=== PATIENT | male | born 1985 | race Caucasian/White ===

== ENCOUNTER 2020-02-15 14:18 | Inpatient (IN) | payer BC, SELFPAY ==
[~2020-02-15] VITALS: Ht 170.2 cm; Wt 71.4 kg
[2020-02-15 15:32] LABS: HEMATOCRIT 43.6 % (42.0-52.0); HEMOGLOBIN 14.7 g/dl (13.5-17.5); MEAN CORPUSCULAR HEMOGLOBIN 31.2 pg (27.0-33.0); MEAN CORPUSCULAR HGB CONC 33.7 g/dl (32.0-36.5); MEAN CORPUSCULAR VOLUME 92.6 fl (80.0-96.0); PLATELET COUNT, AUTOMATED 277 10^3/uL (150-450); RED BLOOD COUNT 4.71 10^6/uL (4.30-6.10); WHITE BLOOD COUNT 4.9 10^3/uL (4.0-10.0)
[2020-02-15 15:51] LABS: AMPHETAMINES LEVEL URINE NEGATIVE (NEGATIVE); BARBITURATES URINE NEGATIVE (NEGATIVE); BENZODIAZEPINES URINE NEGATIVE (NEGATIVE); CANNABINOIDS URINE NEGATIVE (NEGATIVE); COCAINE METABOLITE URINE NEGATIVE (NEGATIVE); METHADONE URINE NEGATIVE (NEGATIVE); OPIATES URINE NEGATIVE (NEGATIVE); PHENCYCLIDINE URINE NEGATIVE (NEGATIVE)
[2020-02-15 16:01] LABS: ACETAMINOPHEN LEVEL < 2.0 UG/ML (10.0-30.0); ALBUMIN 4.7 GM/DL (3.2-5.2); ALT/SGPT 30 U/L (12-78); BILIRUBIN,DIRECT 0.2 MG/DL (0.0-0.2); BILIRUBIN,TOTAL 0.6 MG/DL (0.2-1.0); BLOOD UREA NITROGEN 5 MG/DL (7-18); CALCIUM LEVEL 8.9 MG/DL (8.5-10.1); CARBON DIOXIDE LEVEL 27 MEQ/L (21-32); CHLORIDE LEVEL 106 MEQ/L (98-107); CREATININE FOR GFR 0.88 MG/DL (0.70-1.30); ETHYL ALCOHOL (ETHANOL) 0.226 % (0.000-0.010); GLOMERULAR FILTRATION RATE > 60.0 (>60); GLUCOSE, FASTING 104 MG/DL (70-100); SALICYLATE LEVEL < 1.7 MG/DL (5.0-30.0); SODIUM LEVEL 141 MEQ/L (136-145); THYROID STIMULATING HORMONE 0.612 uIU/ML (0.358-3.740); TOTAL PROTEIN 7.6 GM/DL (6.4-8.2)
[2020-02-15] MEDS ORDERED: LORazepam 2 MG TAB PO PRN (16:45)
[2020-02-15] MEDS: THIAMINE 100 MG TAB PO SCH (17:11)
[2020-02-15] MEDS: MULTIVITAMINS/MINERALS THERAP 1 TAB PO SCH (17:11)
[2020-02-15] MEDS: FOLIC ACID 1 MG TAB PO SCH (17:11)
[2020-02-15] MEDS ORDERED: NICOTINE 21MG/24HR 1 EA TRANSDERMAL TD ONE (18:15)
[2020-02-16] MEDS: FOLIC ACID 1 MG TAB PO SCH (10:39)
[2020-02-16] MEDS: MULTIVITAMINS/MINERALS THERAP 1 TAB PO SCH (10:39)
[2020-02-16] MEDS: THIAMINE 100 MG TAB PO SCH ×2 (10:39→20:52)
[2020-02-16] MEDS ORDERED: THIAMINE 100 MG TAB PO SCH (21:00)
[2020-02-16] MEDS ORDERED: IBUPROFEN 400 MG TAB PO PRN (23:00)
[2020-02-16] MEDS ORDERED: OLANZapine ORAL DISINTEGRATING TAB 5MG PO PRN (23:00)
[2020-02-16] MEDS ORDERED: LORazepam 2 MG TAB PO PRN (23:00)
[2020-02-16] MEDS ORDERED: traZODone 50 MG TAB PO PRN (23:00)
[2020-02-16] MEDS ORDERED: MOM 30ML SUSPENSION UDC PO PRN (23:00)
[2020-02-16] MEDS ORDERED: MAALOX 30 ML SUSP *UDC PO PRN (23:00)
[2020-02-17 00:10] VITALS: BP 147/95
[2020-02-17 06:52] VITALS: BP 148/79
[2020-02-17] MEDS: MULTIVITAMINS/MINERALS THERAP 1 TAB PO SCH ×2 (08:45→09:00)
[2020-02-17] MEDS: FOLIC ACID 1 MG TAB PO SCH ×2 (08:45→09:00)
[2020-02-17] MEDS: THIAMINE 100 MG TAB PO SCH ×3 (08:45→20:50)
[2020-02-17] MEDS: NICOTINE 21MG/24HR 1 EA TRANSDERMAL TD SCH (09:20)
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
[2020-02-17 17:31] VITALS: BP 132/77
--- NOTE | 2020-02-17 18:47 | ECGEPIP ---
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
--- NOTE | 2020-02-17 21:54 | HPEPDOC ---
[facility] Medical History & Physical Date of Admission Feb 16, 2020 Date of Service: Feb 17, 2020 History and Physical CHIEF COMPLAINT: Suicidal Ideation HISTORY OF PRESENT ILLNESS: Mr. Jj is a 34 year old male who works in the [employer] who was found with a blood alcohol level of 0.226 and suicidal i deations. He tells me that he does have stress in his life that lead him to suicidal ideations. Otherwise, denies any past medical history or past surgical history. He does drink alcohol frequently as he works in a [employer]. He has never had problems with withdrawal in the past. He tells me the longest he's been without alcohol was a week. Otherwise denies fever/chills, chest pain, dyspnea, abdominal pain, or dysuria. PAST MEDICAL HISTORY: 1. Denies past medical history PAST SURGICAL HISTORY: 1. Denies past surgeries SOCIAL HISTORY: Tobacco use:Former smoker. Now vapes instead. Started vaping 6 months ago ETOH: Frequent Illicit drug use: Marijuana a couple times a month FAMILY HISTORY: Father: HBP and migraines Mother: unknown ALLERGIES: Please see below. REVIEW OF SYSTEMS: CONSTITUTIONAL: Denies any fever or chills. Denies lightheadedness or dizziness. ENT: Denies rhinorrhea. Denies sore throat. Denies dysphagia. RESPIRATORY: Denies shortness of breath. Denies cough. CARDIOVASCULAR: Denies chest pain. Denies palpitations. GASTROINTESTINAL: Denies abdominal pain. Denies diarrhea. Denies constipation GENITOURINARY: Denies dysuria. CUTANEOUS: Denies rashes. MUSCULOSKELETAL: Denies muscle weakness. NEUROLOGICAL: Denies neuropathy. Denies paresthesias. PSYCHOLOGICAL: Reports stress HOME MEDICATIONS: Please see below. PHYSICAL EXAMINATION: VITAL SIGNS: Temperature 98.7, pulse 71, respiratory rate 16, blood pressure 132/77, pulse oximetry 99 % on room air. GENERAL: Comfortable, in no apparent distress. HEENT: Head normocephalic/atraumatic, EOMI, sclera clear. NECK: Supple, no JVD. RESPIRATORY: Lungs clear to auscultation bilaterally, no rales, wheeze or rhonchi. CARDIOVASCULAR: Regular rate and rhythm. ABDOMEN: Soft, nontender, no guarding or rebound tenderness. Normal bowel sounds. MUSCLE SKELETAL: Muscle strength 5/5 in all extremities. NEUROLOGICAL: CN 312 grossly intact, no focal deficits noted. PSYCHOLOGICAL: Normal mood and affect LABORATORY DATA: See below. ASSESSMENT AND PLAN: 1. Suicide ideation Being managed in the inpatient mental health unit 2. Wellness Patient should follow with a PCP for general wellness Thank you for consulting us. We will sign off at this time. Please feel free to reconsult us if there is any further questions or concerns. Vital Signs Vital Signs Date Time Temp Pulse Resp B/P (MAP) Pulse Ox O2 Delivery O2 Flow Rate FiO2 02/17/20 17:31 98.7 71 16 132/77 (95) 99 Room Air Home Medications No Active Prescriptions or Reported Meds Allergies Coded Allergies: Penicillins (Unverified Allergy, Unknown, 02/15/20) A-FIB/CHADSVASC A-FIB History Current/History of A-Fib/PAF?: No CATRACHO CHIN DO Feb 17, 2020 21:54
[2020-02-17 23:50] VITALS: BP 132/77
[2020-02-18 06:29] VITALS: BP 112/88
[2020-02-18 06:53] VITALS: BP 112/88
[2020-02-18] MEDS: THIAMINE 100 MG TAB PO SCH ×2 (08:34→20:05)
[2020-02-18] MEDS: NICOTINE 21MG/24HR 1 EA TRANSDERMAL TD SCH (08:34)
[2020-02-18] MEDS: MULTIVITAMINS/MINERALS THERAP 1 TAB PO SCH (08:34)
[2020-02-18] MEDS: FOLIC ACID 1 MG TAB PO SCH (08:34)
[2020-02-18] MEDS ORDERED: SERTRALINE HCL 25 MG TABLET PO ONE (10:00)
[2020-02-18] MEDS: busPIRone 5 MG TAB PO SCH ×2 (10:29→20:06)
--- NOTE | 2020-02-18 11:53 | MHIPNPDOC ---
[facility] Progress Note Progress Note DATE OF SERVICE: 02/18/20 Patient is a 34 year old Single, Employed, Domiciled, Male reporting severe depression and anxiety with suicidal ideation to shoot himself or cause an MVC. History of Present Illness HISTORY OF THE PRESENT ILLNESS: Patient is a 34 year old Single, Employed, Angi ciled, Male reporting severe depression and anxiety with suicidal ideation to shoot himself or cause an MVC. He is reporting a recent breakup and states "that was the straw the broke the camel's back. Reports that the last 3- 4 weeks he has been "feeling like it would be better if he wasn't alive." He states that his friends have intervened and made him promise to get help to seek therapy and medication. He said that one night earlier in the month he had a bad night, called a suicide hotline and they directed him to an agency in [place] but he needs health insurance for therapy. States that he currently has a job but does not make enough money to afford health insurance. His depression became severe enough that his boss and friend brought him to the ED. He states that he has been having passive suicidal planning, to either get access to a gun to shoot himself or drive his truck into the acuna or cause an MVC. He states that his home is so far away from other people that a gun shot would not alert anyone to his home. He is however currently living with his parents. His home is off the grid and because he is unable to keep up with heating and such he moved in with his parents before last winter. Then COVID hit and he is still living in an apartment off his parents house. He feels that he has had depression since he was a teen. He reports 5 breakups but more recently because of his most recent breakup he lost the ability to continue his homestead. The night that his girlfriend left, all of his chickens were killed because he did not get home soon enough to lock them in the coop and then he couldn't keep up with the garden, his steel finisher broke and last winter the pipes froze. He sees the inability to continue his homesteading as a big failure in his life. VITAL SIGNS: See below. NEW TEST RESULTS: CURRENT MEDICATIONS: See below. MENTAL STATUS EXAMINATION: Patient is a 34 year old Single, Employed, Domiciled, Male, who is reporting severe depression, anxiety and suicidal ideation. Recently had a breakup but reports a long history of catastrophic events with his home, ho mesteading lifestyle and loss of friends due to excessive alcohol use. Patient works at a [employer] and much of his excessiveness relates to this position. Speech: Is fluid, conversant, normal rate, tone and volume Language skills are intact Thought processes including: linear and goal oriented Thought content: reports depression and anxiety. Abstract reasoning, and computation: fair Description of associations: denies, none observed Description of abnormal or psychotic thoughts: denies, none observed. Judgment: fair Insight: fair Orientation: alert and oriented to person, place, time and situation Recent and remote memory: intact Attention span and concentration: good Language: expansive Fund of knowledge: below average Mood: remain severely depressed Affect: flat/tearful and at times despondent DIAGNOSES: Major Depressive Disorder, Single Episode, Moderate Anxiety Disorder Alcohol Use Disorder and Dependence Tobacco Use Disorder Cannabis Use Disorder ASSESSMENT: Patient remains very depressed, reports no suicidal ideation but admits to anxiety. He reported that his earlier recollection of depression was when he was 15-16 when he felt that he wasn't as close to his parents as he was to his friends' parents. From there, looking back he states that he was rebellious and moved out on his own and did not speak to his parents until he was in his 20's. Most recently he states that when he was homesteading and living off the grid. He was doing well, but a series of misfortunate events including a breakup made it very difficult for him and this is when he became more depressed and anxious. States that he lost his chickens, his steel finisher , his pipes froze and girlfriend of 5 years broke up with him. Meanwhile he has been drinking and developing a tolerance because part of his job is drinking the products at the [employer]. Throughout the interview, the patient was very tearful, stating that he feels that he failed himself when he lost the homestead for which he is still paying the mortgage on. During today's interview, I encouraged patient to journal (he was given a notebook to do this) with several assignments to write to himself. 1) write to his 15 year old self. 2) write to his 30 year old self 3) write to himself now with the past 6 months and the many stressors going on. 4) write all the negative thoughts that he has been th inking 5) positive statements to counter the negative thoughts. Patient also talked about his future plans and wished he had another way to visually plan things out (journal given for this) Motivational Interviewing for reduction of alcohol intake. Patient is considering a new career feeling that he cannot continue to work at [employer] believing that this is also the crux of his depression. MANAGEMENT PLAN: Patient started Zoloft, has been treatment naive, also Buspar for anxiety. Zoloft will be increased in a few days. TIME SPENT: 49 minutes. 10:00-10:49 Vital Signs Vital Signs Date Time Temp Pulse Resp B/P (MAP) Pulse Ox O2 Delivery O2 Flow Rate FiO2 02/18/20 06:53 98.3 82 16 112/88 (96) 98 Room Air Current Medications Current Medications Medications (Trade) Dose Ordered Sig/Nikunj Route PRN Reason Start Time Stop Time Status Last Admin Dose Admin Al Hydrox/Mg Hydrox/Simethicone (Mylanta) 30 ml Q4HP PRN PO HEARTBURN/INDIGESTION 02/16/20 23:00 Buspirone HCl (Buspar) 5 mg BID PO 02/18/20 09:00 02/18/20 10:29 Folic Acid (Folic Acid) 1 mg DAILY PO 02/15/20 16:45 02/17/20 09:52 DC 02/17/20 08:45 Folic Acid (Folic Acid) 1 mg DAILY PO 02/17/20 09:00 02/18/20 08:34 Home Med (Med Rec Complete!) ASDIRECTED XX 02/15/20 18:00 02/15/20 18:07 DC Ibuprofen (Advil) 400 mg Q6HP PRN PO PAIN 02/16/20 23:00 Lorazepam (Ativan) 2 mg ASDIRECTED PRN PO SEE PROTOCOL 02/15/20 16:45 02/17/20 09:53 DC Lorazepam (Ativan) 2 mg ASDIRECTED PRN PO SEE PROTOCOL 02/16/20 23:00 Magnesium Hydroxide (Milk Of Magnesia) 30 ml DAILYPRN PRN PO CONSTIPATION 02/16/20 23:00 Multivitamins (Theragram-M) 1 tab DAILY PO 02/15/20 16:45 02/17/20 09:53 DC 02/17/20 08:45 Multivitamins (Theragram-M) 1 tab DAILY PO 02/17/20 09:00 02/18/20 08:34 Nicotine (Nicoderm Cq 21mg) 1 patch DAILY TD 02/17/20 09:00 02/18/20 08:34 Olanzapine (ZyPREXA ZYDIS) 5 mg Q4HP PRN PO AGITATION 02/16/20 23:00 Sertraline HCl (Zoloft) 25 mg DAILY PO 02/19/20 09:00 Thiamine HCl (Thiamine HCl) 100 mg BID PO 02/15/20 16:45 02/17/20 09:53 DC 02/17/20 08:45 Thiamine HCl (Thiamine HCl) 100 mg BID PO 02/16/20 21:00 02/16/20 23:10 DC Thiamine HCl (Thiamine HCl) 100 mg BID PO 02/17/20 09:00 02/19/20 21:01 02/18/20 08:34 Trazodone HCl (Desyrel) 50 mg QHSP PRN PO INSOMNIA 02/16/20 23:00 Allergies Coded Allergies: Penicillins (Unverified Allergy, Unknown, 02/15/20) CHERYL CONNOLLY NP Feb 18, 2020 11:49
[2020-02-18 14:00] VITALS: BP 121/69
[2020-02-18 16:13] VITALS: BP 140/92
[2020-02-18 22:18] VITALS: BP 144/92
[2020-02-19 06:11] VITALS: BP 146/88
[2020-02-19 06:22] VITALS: BP 146/88
[2020-02-19] MEDS: MULTIVITAMINS/MINERALS THERAP 1 TAB PO SCH (08:26)
[2020-02-19] MEDS: busPIRone 5 MG TAB PO SCH ×2 (08:26→20:51)
[2020-02-19] MEDS: FOLIC ACID 1 MG TAB PO SCH (08:26)
[2020-02-19] MEDS: NICOTINE 21MG/24HR 1 EA TRANSDERMAL TD SCH (08:26)
[2020-02-19] MEDS: THIAMINE 100 MG TAB PO SCH ×2 (08:27→20:51)
[2020-02-19] MEDS ORDERED: SERTRALINE HCL 25 MG TABLET PO SCH (09:00)
[2020-02-19 09:39] VITALS: BP 168/96
[2020-02-19 16:31] VITALS: BP 143/88
[2020-02-19 16:39] VITALS: BP 143/88
--- NOTE | 2020-02-19 17:06 | MHIPNPDOC ---
[facility] Progress Note Progress Note DATE OF SERVICE: 02/19/20 Patient is a 34 year old Single, Employed, Domiciled, Male reporting severe depression and anxiety with suicidal ideation to shoot himself or cause an MVC. History of Present Illness HISTORY OF THE PRESENT ILLNESS: Patient is a 34 year old Single, Employed, Dom iciled, Male reporting severe depression and anxiety with suicidal ideation to shoot himself or cause an MVC. He is reporting a recent breakup and states "that was the straw the broke the camel's back. Reports that the last 3- 4 weeks he has been "feeling like it would be better if he wasn't alive." He states that his friends have intervened and made him promise to get help to seek therapy and medication. He said that one night earlier in the month he had a bad night, called a suicide hotline and they directed him to an agency in [place] but he needs health insurance for therapy. States that he currently has a job but does not make enough money to afford health insurance. His depression became severe enough that his boss and friend brought him to the ED. He states that he has been having passive suicidal planning, to either get access to a gun to shoot himself or drive his truck into the acuna or cause an MVC. He states that his home is so far away from other people that a gun shot would not alert anyone to his home. He is however currently living with his parents. His home is off the grid and because he is unable to keep up with heating and such he moved in with his parents before last winter. Then COVID hit and he is still living in an apartment off his parents house. He feels that he has had depression since he was a teen. He reports 5 breakups but more recently because of his most recent breakup he lost the ability to continue his homestead. The night that his girlfriend left, all of his chickens were killed because he did not get home soon enough to lock them in the coop and then he couldn't keep up with the garden, his cd technician broke and last winter the pipes froze. He sees the inability to continue his homesteading as a big failure in his life. VITAL SIGNS: See below. NEW TEST RESULTS: See lab results CURRENT MEDICATIONS: See below. MENTAL STATUS EXAMINATION: patient is 34 year old male with h/o suicidal thoughts, anxiety and depression who ws admitted because he had thoughts about shooting himself. . Speech: normal in r/t/v, spontaneous and fluid Language skills are intact Thought processes including: linear, coherent and goal directed Thought content: Anxious and depressive thoughts, denies SI/HI, thought delusions Abstract reasoning, and computation: fair Description of associations: intact Description of abnormal or psychotic thoughts: denies thought delusions, denies TAV hallucinations, not responding to internal stimuli Judgment: fair Insight: fair Orientation: alert and oriented to person, place, time and situation Recent and remote memory: intact Attention span and concentration: good Language: good language, no abnormalities observed Fund of knowledge: below average Mood: depressed/ sad Affect: congruent with mood but he ties to minimize it DIAGNOSES: Major Depressive Disorder, Single Episode, Moderate Anxiety Disorder Alcohol Use Disorder and Dependence Tobacco Use Disorder Cannabis Use Disorder ASSESSMENT: The patient is still depressed but he is trying to keep his mind busy by attending groups, he says he finds them helpful and he feels safe here. He says he feels improved but I feel he is trying to minimize his depression. Will increase Sertraline to 50 mgs Po daily. MANAGEMENT PLAN: He will take 50 mgs of Sertraline tomorrow morning TIME SPENT: 20 minutes Vital Signs Vital Signs Date Time Temp Pulse Resp B/P (MAP) Pulse Ox O2 Delivery O2 Flow Rate FiO2 02/19/20 16:39 69 143/88 02/19/20 16:31 98.3 16 02/19/20 06:11 Room Air 02/18/20 06:53 98 Current Medications Current Medications Medications (Trade) Dose Ordered Sig/Nikunj Route PRN Reason Start Time Stop Time Status Last Admin Dose Admin Al Hydrox/Mg Hydrox/Simethicone (Mylanta) 30 ml Q4HP PRN PO HEARTBURN/INDIGESTION 02/16/20 23:00 Buspirone HCl (Buspar) 5 mg BID PO 02/18/20 09:00 02/19/20 08:26 Folic Acid (Folic Acid) 1 mg DAILY PO 02/15/20 16:45 02/17/20 09:52 DC 02/17/20 08:45 Folic Acid (Folic Acid) 1 mg DAILY PO 02/17/20 09:00 02/19/20 08:26 Home Med (Med Rec Complete!) ASDIRECTED XX 02/15/20 18:00 02/15/20 18:07 DC Ibuprofen (Advil) 400 mg Q6HP PRN PO PAIN 02/16/20 23:00 Lorazepam (Ativan) 2 mg ASDIRECTED PRN PO SEE PROTOCOL 02/15/20 16:45 02/17/20 09:53 DC Lorazepam (Ativan) 2 mg ASDIRECTED PRN PO SEE PROTOCOL 02/16/20 23:00 Magnesium Hydroxide (Milk Of Magnesia) 30 ml DAILYPRN PRN PO CONSTIPATION 02/16/20 23:00 Multivitamins (Theragram-M) 1 tab DAILY PO 02/15/20 16:45 02/17/20 09:53 DC 02/17/20 08:45 Multivitamins (Theragram-M) 1 tab DAILY PO 02/17/20 09:00 02/19/20 08:26 Nicotine (Nicoderm Cq 21mg) 1 patch DAILY TD 02/17/20 09:00 02/19/20 08:26 Olanzapine (ZyPREXA ZYDIS) 5 mg Q4HP PRN PO AGITATION 02/16/20 23:00 Sertraline HCl (Zoloft) 25 mg DAILY PO 02/19/20 09:00 02/19/20 08:27 Thiamine HCl (Thiamine HCl) 100 mg BID PO 02/15/20 16:45 02/17/20 09:53 DC 02/17/20 08:45 Thiamine HCl (Thiamine HCl) 100 mg BID PO 02/16/20 21:00 02/16/20 23:10 DC Thiamine HCl (Thiamine HCl) 100 mg BID PO 02/17/20 09:00 02/19/20 21:01 02/19/20 08:27 Trazodone HCl (Desyrel) 50 mg QHSP PRN PO INSOMNIA 02/16/20 23:00 Allergies Coded Allergies: Penicillins (Unverified Allergy, Unknown, 02/15/20) YAJAIRA PONCE MD Feb 19, 2020 17:06
[2020-02-20 06:16] VITALS: BP 141/85
[2020-02-20] MEDS: MULTIVITAMINS/MINERALS THERAP 1 TAB PO SCH (08:27)
[2020-02-20] MEDS: SERTRALINE HCL 50 MG TAB PO SCH (08:27)
[2020-02-20] MEDS: busPIRone 5 MG TAB PO SCH ×2 (08:27→21:08)
[2020-02-20] MEDS: FOLIC ACID 1 MG TAB PO SCH (08:28)
[2020-02-20] MEDS: NICOTINE 21MG/24HR 1 EA TRANSDERMAL TD SCH (08:28)
[2020-02-20 08:53] VITALS: BP 146/86
[2020-02-20] MEDS ORDERED: SERTRALINE HCL 25 MG TABLET PO SCH (09:00)
--- NOTE | 2020-02-20 12:32 | MHIPNPDOC ---
[facility] Progress Note Progress Note DATE OF SERVICE: 02/20/20 Patient is a 34 year old Single, Employed, Domiciled, Male reporting severe depression and anxiety with suicidal ideation to shoot himself or cause an MVC. History of Present Illness HISTORY OF THE PRESENT ILLNESS: Patient is a 34 year old Single, Employed, Angi ciled, Male reporting severe depression and anxiety with suicidal ideation to shoot himself or cause an MVC. He is reporting a recent breakup and states "that was the straw the broke the camel's back. Reports that the last 3- 4 weeks he has been "feeling like it would be better if he wasn't alive." He states that his friends have intervened and made him promise to get help to seek therapy and medication. He said that one night earlier in the month he had a bad night, called a suicide hotline and they directed him to an agency in [place] but he needs health insurance for therapy. States that he currently has a job but does not make enough money to afford health insurance. His depression became severe enough that his boss and friend brought him to the ED. He states that he has been having passive suicidal planning, to either get access to a gun to shoot himself or drive his truck into the acuna or cause an MVC. He states that his home is so far away from other people that a gun shot would not alert anyone to his home. He is however currently living with his parents. His home is off the grid and because he is unable to keep up with heating and such he moved in with his parents before last winter. Then COVID hit and he is still living in an apartment off his parents house. He feels that he has had depression since he was a teen. He reports 5 breakups but more recently because of his most recent breakup he lost the ability to continue his homestead. The night that his girlfriend left, all of his chickens were killed because he did not get home soon enough to lock them in the coop and then he couldn't keep up with the garden, his transportation specialist broke and last winter the pipes froze. He sees the inability to continue his homesteading as a big failure in his life. VITAL SIGNS: See below. NEW TEST RESULTS: See lab results CURRENT MEDICATIONS: See below. MENTAL STATUS EXAMINATION: patient is 34 year old male with h/o suicidal thoughts, anxiety and depression who was admitted because he had thoughts about shooting himself. . Speech: normal in r/t/v, spontaneous and fluid Language skills are intact Thought processes including: linear, coherent and goal directed Thought content: Anxious thoughts related to the things he has to do when he gets discharged, reports some sad thoughts, denies SI/HI, thought delusions Abstract reasoning, and computation: fair Description of associations: intact Description of abnormal or psychotic thoughts: denies thought delusions, denies TAV hallucinations, not responding to internal stimuli Judgment: fair Insight: fair Orientation: alert and oriented to person, place, time and situation Recent and remote memory: intact Attention span and concentration: good Language: good language, no abnormalities observed Fund of knowledge: below average Mood: depressed/ sad Affect: congruent with mood but he ties to minimize it DIAGNOSES: Major Depressive Disorder, Single Episode, Moderate Anxiety Disorder Alcohol Use Disorder and Dependence Tobacco Use Disorder Cannabis Use Disorder ASSESSMENT:he started 50 mgs of Sertraline today, he denies medications side effects at this time. Reports sleeping well, appetite is good, he has normal worries and sad thoughts that are congruent with his situation, but he is not hopeless, helpless or suicidal. MANAGEMENT PLAN: Continue with current treatment plan TIME SPENT: 20 minutes Vital Signs Vital Signs Date Time Temp Pulse Resp B/P (MAP) Pulse Ox O2 Delivery O2 Flow Rate FiO2 02/20/20 08:53 63 146/86 02/20/20 08:53 16 02/20/20 06:16 98.4 97 Room Air Current Medications Current Medications Medications (Trade) Dose Ordered Sig/Nikunj Route PRN Reason Start Time Stop Time Status Last Admin Dose Admin Al Hydrox/Mg Hydrox/Simethicone (Mylanta) 30 ml Q4HP PRN PO HEARTBURN/INDIGESTION 02/16/20 23:00 Buspirone HCl (Buspar) 5 mg BID PO 02/18/20 09:00 02/20/20 08:27 Folic Acid (Folic Acid) 1 mg DAILY PO 02/15/20 16:45 02/17/20 09:52 DC 02/17/20 08:45 Folic Acid (Folic Acid) 1 mg DAILY PO 02/17/20 09:00 02/20/20 08:28 Home Med (Med Rec Complete!) ASDIRECTED XX 02/15/20 18:00 02/15/20 18:07 DC Ibuprofen (Advil) 400 mg Q6HP PRN PO PAIN 02/16/20 23:00 Lorazepam (Ativan) 2 mg ASDIRECTED PRN PO SEE PROTOCOL 02/15/20 16:45 02/17/20 09:53 DC Lorazepam (Ativan) 2 mg ASDIRECTED PRN PO SEE PROTOCOL 02/16/20 23:00 Magnesium Hydroxide (Milk Of Magnesia) 30 ml DAILYPRN PRN PO CONSTIPATION 02/16/20 23:00 Multivitamins (Theragram-M) 1 tab DAILY PO 02/15/20 16:45 02/17/20 09:53 DC 02/17/20 08:45 Multivitamins (Theragram-M) 1 tab DAILY PO 02/17/20 09:00 02/20/20 08:27 Nicotine (Nicoderm Cq 21mg) 1 patch DAILY TD 02/17/20 09:00 02/20/20 08:28 Olanzapine (ZyPREXA ZYDIS) 5 mg Q4HP PRN PO AGITATION 02/16/20 23:00 Sertraline HCl (Zoloft) 25 mg DAILY PO 02/19/20 09:00 02/19/20 17:08 DC 02/19/20 08:27 Sertraline HCl (Zoloft) 50 mg QAM PO 02/20/20 09:00 02/20/20 08:27 Sertraline HCl (Zoloft) 250 mg DAILY PO 02/20/20 09:00 UNV Thiamine HCl (Thiamine HCl) 100 mg BID PO 02/15/20 16:45 02/17/20 09:53 DC 02/17/20 08:45 Thiamine HCl (Thiamine HCl) 100 mg BID PO 02/16/20 21:00 02/16/20 23:10 DC Thiamine HCl (Thiamine HCl) 100 mg BID PO 02/17/20 09:00 02/19/20 21:01 DC 02/19/20 20:51 Trazodone HCl (Desyrel) 50 mg QHSP PRN PO INSOMNIA 02/16/20 23:00 Allergies Coded Allergies: Penicillins (Unverified Allergy, Unknown, 02/15/20) YAJAIRA PONCE MD Feb 20, 2020 12:32
[2020-02-20 16:17] VITALS: BP 130/73
[2020-02-20 16:36] VITALS: BP 148/82
[2020-02-20 21:05] VITALS: BP 158/88
[2020-02-21 06:37] VITALS: BP 148/92
[2020-02-21 06:39] VITALS: BP 148/92
[2020-02-21] MEDS: SERTRALINE HCL 50 MG TAB PO SCH (08:37)
[2020-02-21] MEDS: FOLIC ACID 1 MG TAB PO SCH (08:37)
[2020-02-21] MEDS: busPIRone 5 MG TAB PO SCH (08:37)
[2020-02-21] MEDS: MULTIVITAMINS/MINERALS THERAP 1 TAB PO SCH (08:37)
[2020-02-21] MEDS: NICOTINE 21MG/24HR 1 EA TRANSDERMAL TD SCH (08:38)
[2020-02-21] MEDS ORDERED: BUSP5TA PO (09:50)
[2020-02-21] MEDS ORDERED: SERT50TA29 PO (09:50)
[2020-02-21] MEDS ORDERED: FOLI1TAB11 PO (09:50)
[2020-02-21] MEDS ORDERED: VITMTA PO (09:50)
[2020-02-21 10:55] VITALS: BP 131/76
--- NOTE | 2020-02-21 12:50 | MHDSPDOC ---
[facility] Discharge Summary Discharge Summary DATE OF ADMISSION: Feb 16, 2020 at 22:47 DATE OF DISCHARGE: February 21, 2020 at 1139 DISCHARGE DIAGNOSES: Major Depressive Disorder, Single Episode, Moderate Anxiety Disorder Alcohol Use Disorder and Dependence Tobacco Use Disorder Cannabis Use Disorder REASON FOR ADMISSION: Patient is a 34 year old Single, Employed, Domiciled, Male reporting severe depression and anxiety with suicidal ideation to shoot himself or cause an MVC. HISTORY OF THE PRESENT ILLNESS: Patient is a 34 year old Single, Employed, Do miciled, Male reporting severe depression and anxiety with suicidal ideation to shoot himself or cause an MVC. He is reporting a recent breakup and states "that was the straw the broke the camel's back. Reports that the last 3- 4 weeks he has been "feeling like it would be better if he wasn't alive." He states that his friends have intervened and made him promise to get help to seek therapy and medication. He said that one night earlier in the month he had a bad night, called a suicide hotline and they directed him to an agency in [place] but he needs health insurance for therapy. States that he currently has a job but does not make enough money to afford health insurance. His depression became severe enough that his boss and friend brought him to the ED. He states that he has been having passive suicidal planning, to either get access to a gun to shoot himself or drive his truck into the acuna or cause an MVC. He states that his home is so far away from other people that a gun shot would not alert anyone to his home. He is however currently living with his parents. His home is off the grid and because he is unable to keep up with heating and such he moved in with his parents before last winter. Then COVID hit and he is still living in an apartment off his parents house. He feels that he has had depression since he was a teen. He reports 5 breakups but more recently because of his most recent breakup he lost the ability to continue his homestead. The night that his girlfriend left, all of his chickens were killed because he did not get home soon enough to lock them in the coop and then he couldn't keep up with the garden, his generation technologist broke and last winter the pipes froze. He sees the inability to continue his homesteading as a big failure in his life. CONSULTANTS INVOLVED: See Medical H + P by Hospitalist TREATMENT AND PROGRESS ON THE UNIT : Patient was admitted to the [facility] on a 39 legal status he was afforded the following treatment modalities: 1) Individual Therapy 2) Group Therapy 3) Medication Management 4) Milieu Therapy 5) Safe Environment HOSPITAL COURSE: Patient was admitted to [facility] on a 39 legal status and was started on Zoloft. He reported a long history of anxiety. He was started on Zoloft and Buspar. Reports that he has a long history of poor communication with his parents. We had discussions about how this poor communication has made it difficult for him to make good choices because due to his poor communication/relationship with his parents, he turned to alcohol for coping. He was given assignments to work on his journal and he talked about his thought processes and how in his journaling he had not addressed his substance use. Patient was receptive to cognitive behavioral therapy while hospitalized and I feel that he should continue with therapy and urge him to make this a priority in his life. I encouraged the patient to seek Outpatient Substance Treatment, he feels that he only needs mental health services at this time, he stated that he may consider it. I strong urged him to seek dual diagnosis treatment. DISCHARGE ASSESSMENT: In today's interview, patient states that his depression has improved and that he feels that he can return home. His anxiety is moderate but that at this time he has not suicidal or homicidal thinking, planning or intent. MENTAL STATUS EXAMINATION ON DISCHARGE: Patient is a 34 year old Single, Employed, Domiciled, Male reporting severe depression and anxiety with suicidal ideation to shoot himself or cause an MVC. Speech: Is fluid, conversant, normal rate, tone and volume Language skills are intact Thought processes including: linear and goal oriented Thought content: reports depression and anxiety. Abstract reasoning, and computation: fair Description of associations: denies, none observed Description of abnormal or psychotic thoughts: denies, none observed. Judgment: fair Insight: fair Orientation: alert and oriented to person, place, time and situation Recent and remote memory: intact Attention span and concentration: good Language: expansive Fund of knowledge: below average Mood: moderately depression rates it 2/10 Affect: reactive MEDICATIONS ON DISCHARGE: See Medication reconciliation PLAN/FOLLOWUP ARRANGEMENTS: See Discharge Planners notes The amount of time spent in the coordination of care for this patient was approximately 50 minutes. Vital Signs/I&Os Vital Signs Date Time Temp Pulse Resp B/P (MAP) Pulse Ox O2 Delivery O2 Flow Rate FiO2 02/21/20 10:55 66 131/76 02/21/20 06:37 98.1 16 Room Air 02/20/20 06:16 97 Medications Scheduled Folic Acid (Folic Acid) 1 Mg Tablet, 1 MG PO DAILY for Vitamin, #7 Multivitamins (Thera M Plus Tablet) 1 Each Tablet, 1 TAB PO DAILY for Vitamin replacement, #7 Sertraline HCl (Sertraline HCl) 50 Mg Tablet, 50 MG PO QAM for Depression, #7 Scheduled PRN Buspirone HCl (Buspirone HCl) 5 Mg Tablet, 5 MG PO BID PRN for ANXIETY/AGITATION, #14 Allergies Coded Allergies: Penicillins (Unverified Allergy, Unknown, 02/15/20) CHERYL CONNOLLY NP Feb 21, 2020 11:39
== END 2020-02-21 13:42 | disposition home or self-care (01) | DRG 751 ==
LOC: M ED 14:18 → M ED INP 02-16 22:47 → M PSY 02-17 00:04
PROVIDERS: ADMIT Psychiatry & Neurology Psychiatry; ATTEND Psychiatry & Neurology Psychiatry
DX: F32.1 Major depressive disorder, single episode, moderate (principal); R45.851 Suicidal ideations; F17.200 Nicotine dependence, unspecified, uncomplicated; F12.90 Cannabis use, unspecified, uncomplicated; F41.9 Anxiety disorder, unspecified; F10.20 Alcohol dependence, uncomplicated; Z88.0 Allergy status to penicillin

== ENCOUNTER → 2020-11-22 | Outpatient (CLI) | payer BC ==
[~2020-11-22] MED LIST: BUSP5TA PO; FOLI1TAB11 PO; SERT50TA29 PO; VITMTA PO
== END ==
LOC: M OUTALCOH 07:38
PROVIDERS: ATTEND Psychiatry & Neurology Psychiatry
DX: F10.20 Alcohol dependence, uncomplicated (principal)

== ENCOUNTER 2020-11-29 13:00 | Outpatient (RCR) | payer BC | END 2020-12-05 | LOC: M OUTALCOH 13:00 | PROVIDERS: ATTEND Psychiatry & Neurology Psychiatry | DX: F10.20 Alcohol dependence, uncomplicated (principal); F17.200 Nicotine dependence, unspecified, uncomplicated ==

== ENCOUNTER 2021-01-03 14:05 | Outpatient (RCR) | payer BC | END 2021-01-04 | LOC: M OUTALCOH 14:05 | PROVIDERS: ATTEND Psychiatry & Neurology Psychiatry | DX: F10.20 Alcohol dependence, uncomplicated (principal); F17.200 Nicotine dependence, unspecified, uncomplicated ==

== ENCOUNTER 2021-02-02 14:37 | Outpatient (RCR) | payer BC | END 2021-02-04 | LOC: M OUTALCOH 14:37 | PROVIDERS: ATTEND Psychiatry & Neurology Psychiatry | DX: F10.20 Alcohol dependence, uncomplicated (principal); F17.200 Nicotine dependence, unspecified, uncomplicated; F12.10 Cannabis abuse, uncomplicated ==

== ENCOUNTER 2021-02-28 16:00 | Outpatient (RCR) | payer BC | END 2021-03-06 | LOC: M OUTALCOH 16:00 | PROVIDERS: ATTEND Psychiatry & Neurology Psychiatry | DX: F10.20 Alcohol dependence, uncomplicated (principal); F17.200 Nicotine dependence, unspecified, uncomplicated; F12.10 Cannabis abuse, uncomplicated ==

== ENCOUNTER 2021-04-04 16:00 | Outpatient (RCR) | payer BC | END 2021-04-06 | LOC: M OUTALCOH 16:00 | PROVIDERS: ATTEND Psychiatry & Neurology Psychiatry | DX: F10.20 Alcohol dependence, uncomplicated (principal); F17.200 Nicotine dependence, unspecified, uncomplicated; F12.10 Cannabis abuse, uncomplicated ==

== ENCOUNTER 2021-04-30 16:00 | Outpatient (RCR) | payer BC | END 2021-05-07 | LOC: M OUTALCOH 16:00 | PROVIDERS: ATTEND Psychiatry & Neurology Psychiatry | DX: F10.20 Alcohol dependence, uncomplicated (principal); F17.200 Nicotine dependence, unspecified, uncomplicated; F12.10 Cannabis abuse, uncomplicated ==